=== PATIENT | male | born 1950 | race Caucasian/White ===

== ENCOUNTER → 2024-04-25 12:01 | Outpatient (CLI) | payer OTHER, SELFPAY ==
--- NOTE | 2024-04-25 12:04 | DI.ECHO.S_ITS ---
[facility] : : [address] : : [place] : : [id number] : : Phone: [phone] Echocardiogram Report + + :Name: IVIS SHEN Study Date: 04/25/2024 Height: 71 in : :Hospital ReadingLocation: Weight: 275 lb : : Gender: Male BSA: 2.4 m2 : :: 1950 Age: 74 yrs BP: 135/96 mmHg: :Reason For Study: CHRONIC MICROVASCULAR ISCHEMIC DAMAGE : :Ordering Physician: SUE, : :LUIS FERNANDO Performed By: Forrest Lopes : :Referring: LUIS FERNANDO ROGERS : + + Interpretation Summary Mild concentric left ventricular hypertrophy withg ejection fraction 60-65%. Mildly dilated right ventricle with normal right ventricular systolic function. The right atrium is mildly dilated. No signficant valvular abnormality. The ascending aorta is moderately enlarged (4.6 cm). Procedure: A two-dimensional transthoracic echocardiogram with color flow and Doppler was performed. The study quality was technically good. There is no prior echocardiogram noted for this patient. The patient was in normal sinus rhythm during the exam. Left Ventricle: The left ventricle is normal in size. There is mild concentric left ventricular hypertrophy. There is no ventricular septal defect visualized. The ejection fraction is estimated to be 60-65%. There are no focal wall motion abnormalities. Right Ventricle: The right ventricle is mildly dilated. The right ventricular systolic function is normal. Atria: The left atrial size is normal. The right atrium is mildly dilated. There is no Doppler evidence for an interatrial shunt. Mitral Valve: The mitral valve leaflets appear normal. There is no evidence of stenosis, fluttering, or prolapse. There is trace mitral regurgitation. Aortic Valve: The aortic valve is trileaflet. The aortic valve opens well. There is trace aortic regurgitation. Tricuspid Valve: The tricuspid valve leaflets are thin and pliable. There is trace tricuspid regurgitation. Pulmonic Valve: The pulmonic valve is not well seen, but is grossly normal. There is trace pulmonic regurgitation. Great Vessels: The aortic root is mildly dilated. The ascending aorta is moderately enlarged. The pulmonary artery is normal size. The IVC is of normal diameter and collapses greater than 50% with a sniff. This suggests a low right atrial pressure of 3 mm Hg. Pericardium/ Pleura There is no pericardial effusion. There is no pleural effusion. MMode/2D Measurements & Calculations LVIDd: 5.1 cm LVOT diam: 2.6 cm LVIDs: 3.5 cm Ao root diam: 4.4 cm FS: 30.0 % asc Aorta Diam: 4.6 cm EPSS: 0.62 cm Ao Arch Diam (Prox Trans): 2.0 cm IVSd: 1.2 cm LVPWd: 1.2 cm LV strange. diameter/BSA (cm/m^2): 2.1 LV sys. diameter/BSA (cm/m^2): 1.5 LA A2 area: 21.4 cm2 RA long axis: 5.2 cm LA A4 area: 25.9 cm2 RA area: 22.7 cm2 LA length (vol): 6.2 cm RA vol: 83.5 ml LA vol: 75.5 ml RA : 34.6 ml/m2 LA vol index: 31.3 ml/m2 IVC diam: 1.6 cm RVD1 (basal): 4.9 cm RVD2 (mid): 3.5 cm Doppler Measurements & Calculations Ao V2 max: 120.9 cm/sec LVOT Max Rito: 95.1 cm/sec Ao V2 mean: 76.4 cm/sec LV V1 max P.6 mmHg Ao max P.8 mmHg LV V1 VTI: 21.8 cm Ao mean P.7 mmHg ALEX(I,D): 4.7 cm2 Ao V2 VTI: 24.4 cm ALEX(V,D): 4.2 cm2 sev ratio: 0.89 ALEX indexed to BSA (cm^2/m^2): 2.0 MV E max rito: 48.3 cm/sec TR max rito: 239.8 cm/sec MV A max rito: 60.1 cm/sec TR max P.0 mmHg MV E/A: 0.80 PA V2 max: 54.7 cm/sec Med Peak E' Rito: 5.6 cm/sec PA V2 mean: 39.3 cm/sec E/E' med: 8.7 PA mean P.67 mmHg Lat Peak E' Rito: 7.6 cm/sec PA pr(Accel): 34.5 mmHg E/E' lat: 6.3 E/e' average: 7.5 MV dec time: 0.17 sec SV([facility]): 115.4 ml Electronically signed by: Tania Luna on Reading Physician:04/25/2024 02:20 PM
== END ==
PROVIDERS: Referring Provider Orthopaedic Surgery; Visit Provider Orthopaedic Surgery
DX: I67.82 Cerebral ischemia (principal); I77.89 Other specified disorders of arteries and arterioles; I77.810 Thoracic aortic ectasia
CPT/HCPCS: 93306